=== PATIENT | male | born 1950 | race Caucasian/White ===

== ENCOUNTER 2016-06-06 10:59 | Observation (INO) ==
--- NOTE | 2016-06-06 11:30 | Emergency Department Note ---
Disposition Clinical Impression: Chest pain Qualifiers: Chest pain type: unspecified Qualified Code(s): R07.9 - Chest pain, unspecified Disposition: Admitted As Inpatient Condition: Good Referrals: Unassigned,Provider [Primary Care Provider] - Forms: ED Satisfaction Letter Time of Disposition: 12:53 Chest Pain HPI - General Chief Complaint: ED Chest Pain Stated Complaint: Chest pain Source: patient Mode of arrival: ambulatory Limitations: no limitations Vital Signs Reviewed: Yes Nursing Notes Reviewed: Yes - History of Present Illness HPI Narrative: Patient is a 66-year-old male who is complaining of 1-1/2 weeks of left-sided chest pain rating to his left arm. He states nothing makes it better or worse and comes and goes and describes it as an aching sensation. He did have a negative stress test over 10 years ago he has no documented history of coronary artery disease. His brother did have a CABG in his dad of a stroke. He takes 81 mg of aspirin daily. He denies any other associated symptoms denies vomiting, diaphoresis, or radiation to the right arm or back. Pt complaint: chest pain Duration: intermittent Onset: during rest Pain Radiation: LUE Improves with: nothing Worsens with: nothing Associated symptoms: Denies: nausea, vomiting, syncope Treatments prior to arrival chest pain: aspirin - Related Data Allergies Allergy/AdvReac Type Severity Reaction Status Date / Time No Known Allergies Allergy Verified 06/06/16 11:37 All systems ED: reviewed and negative except as stated. Constitutional: Denies: fever, chills Respiratory: Denies: cough, dyspnea, wheezes, hemoptysis Chest Pain PMH - Past Medical History Medical history: Reports: hyperlipidemia, hypertension, thyroid disease - Social History Smoking Status: Never smoker Smokeless Tobacco Status: No Brother Family Medical History Unknown: Yes Adopted: No Family Member Age: 62 Race: Family Member Living Status: Still Living Hx Family Cardiac Disorders: Yes (CABG) Physical Exam - General Limitations: no limitations General appearance: alert, in no apparent distress - Head Head exam: atraumatic, normocephalic, normal inspection - Eye Eye exam: Present: normal appearance, PERRL, EOMI - Expanded Eye Exam Pupils: Left: reactive - ENT ENT exam: normal exam, normal oropharynx, mucous membranes moist - Expanded ENT Exam External ear exam: Present: normal external inspection Mouth exam: Present: normal external inspection Teeth exam: Present: normal inspection Throat exam: Present: normal inspection - Neck Neck exam: Present: normal inspection, full ROM, trachea midline - Chest Chest inspection: Present: normal inspection, symmetric chest wall rise - Respiratory Respiratory exam: Present: normal lung sounds bilaterally - Cardiovascular Cardiovascular exam: Present: regular rate, normal rhythm, normal heart sounds - Abdominal Exam Abdominal exam: Present: soft, Non-Tender. Absent: tenderness, distention, guarding, rebound, rigidity - Extremities Exam Extremities exam: Present: normal inspection, full ROM. Absent: tenderness, pedal edema - Expanded Upper Extremity Exam Shoulder exam: Present: normal inspection, full ROM Arm exam: Present: normal inspection, full ROM Elbow exam: Present: normal inspection, full ROM Forearm/Wrist exam: Present: normal inspection, full ROM Hand exam: Present: normal inspection, full ROM Vascular exam: Normal: capillary refill, radial pulse - Expanded Lower Extremity Exam Hip/Pelvis exam: Present: normal inspection, full ROM Upper leg exam: Present: normal inspection, full ROM Knee exam: Present: normal inspection, full ROM Lower leg exam: Present: normal inspection, full ROM Ankle exam: Present: normal inspection, full ROM Foot/toe exam: Present: normal inspection, full ROM Neurovascular/Tendon exam: Absent: motor deficit, sensory deficit, tendon deficit - Back Exam Back exam: Present: normal inspection, full ROM. Absent: tenderness - Neurological Exam Neurological exam: Present: alert, oriented X3 - Expanded Neurological Exam Patient oriented to: Present: person, place, time Coma Scale Eye Opening: Spontaneous Coma Scale Motor Response: Obeys Commands Coma Scale Verbal Response: Oriented Coma Scale Total: 15 - Psychiatric Psychiatric exam: Present: normal affect, normal mood - Skin Skin exam: Present: warm, dry, intact, normal color Course Vital Signs Temperature 98.1 F 06/06/16 11:01 Pulse Rate 57 06/06/16 11:01 Respiratory Rate 18 06/06/16 11:01 Blood Pressure 133/84 06/06/16 11:01 O2 Sat by Pulse Oximetry 99 06/06/16 11:01 Temperature 98.1 F 06/06/16 11:01 Pulse Rate 57 06/06/16 11:01 Respiratory Rate 18 06/06/16 11:01 Blood Pressure 133/84 06/06/16 11:01 O2 Sat by Pulse Oximetry 99 06/06/16 11:01 Oxygen Delivery Oxygen Delivery Room Air Chest Pain - Differential Diagnosis Likely: stable angina, unstable angina pectoris, atypical chest pain, st elevation myocardial infraction, costalchondritis - Medical Records Medical records reviewed: Yes I reviewed the patient's medical records. - Lab Data Lab results reviewed: Yes I reviewed the patient's lab results. Result diagrams: 06/06/16 11:37 06/06/16 11:37 Lab Results 06/06/16 06/06/16 06/06/16 Range/Units 11:37 11:37 11:37 WBC 8.3 (4.3-11.1) K/mcL RBC 4.80 (4.19-5.50) M/mcL Hgb 14.0 (12.9-16.9) g/dL Hct 42.4 (37.5-50.1) % MCV 88.3 (83.0-100.0) fL MCH 29.2 (28.0-33.3) pg MCHC 33.0 (31.6-35.5) g/dL RDW 12.9 (11.5-14.5) % Plt Count 212 (140-400) K/mcL MPV 10.3 (9.4-12.4) fL Immature Gran % 0.4 (0-4) % Seg Neutrophils % 55.0 % Lymphocytes % 30.0 % Monocytes % 8.2 % Eosinophils % 5.7 % Basophils % 0.7 % Neutrophils # 4.6 (1.6-8.9) K/mcL Lymphocytes # 2.5 (0.6-4.6) K/mcL Monocytes # 0.7 (0.0-1.3) K/mcL Eosinophils # 0.5 (0.0-0.6) K/mcL Basophils # 0.1 (0.0-0.2) K/mcL PT 11.1 (9.4-12.1) Seconds INR 1.0 APTT 34.7 (26.0-36.0) Seconds Sodium 140 (136-145) mEq/L Potassium 4.3 (3.5-4.5) mEq/L Chloride 108 (98-109) mEq/L Carbon Dioxide 24 (19-29) mEq/L BUN 14 (8-26) mg/dL Creatinine 0.83 (0.72-1.25) mg/dL Est GFR ( Amer) > 60 (> 60) Est GFR (Non-Af Amer) > 60 (> 60) BUN/Creatinine Ratio 17 (6-26) Glucose 101 H (70-99) mg/dL Calculated Osmolality 291 (280-300) Calcium 9.2 (8.6-10.8) mg/dL Troponin I (0-0.03) ng/mL 06/06/16 Range/Units 11:37 WBC (4.3-11.1) K/mcL RBC (4.19-5.50) M/mcL Hgb (12.9-16.9) g/dL Hct (37.5-50.1) % MCV (83.0-100.0) fL MCH (28.0-33.3) pg MCHC (31.6-35.5) g/dL RDW (11.5-14.5) % Plt Count (140-400) K/mcL MPV (9.4-12.4) fL Immature Gran % (0-4) % Seg Neutrophils % % Lymphocytes % % Monocytes % % Eosinophils % % Basophils % % Neutrophils # (1.6-8.9) K/mcL Lymphocytes # (0.6-4.6) K/mcL Monocytes # (0.0-1.3) K/mcL Eosinophils # (0.0-0.6) K/mcL Basophils # (0.0-0.2) K/mcL PT (9.4-12.1) Seconds INR APTT (26.0-36.0) Seconds Sodium (136-145) mEq/L Potassium (3.5-4.5) mEq/L Chloride (98-109) mEq/L Carbon Dioxide (19-29) mEq/L BUN (8-26) mg/dL Creatinine (0.72-1.25) mg/dL Est GFR ( Amer) (> 60) Est GFR (Non-Af Amer) (> 60) BUN/Creatinine Ratio (6-26) Glucose (70-99) mg/dL Calculated Osmolality (280-300) Calcium (8.6-10.8) mg/dL Troponin I 0.00 (0-0.03) ng/mL - Radiology Data Radiology results reviewed: Yes I reviewed the patient's radiology results. - EKG Data EKG attestation: Yes I reviewed and interpreted this EKG. EKG shows normal: sinus rhythm Rate: bradycardia (58) Rhythm: NSR [place]/QRS: normal Heart block present: 1st Degree
[2016-06-06] MEDS ORDERED: Aspirin 81 MG TAB.CHEW PO STA (11:32)
[2016-06-06 11:43] LABS: Basophils # 0.1 K/mcL (0.0-0.2); Basophils % 0.7 %; Eosinophils # 0.5 K/mcL (0.0-0.6); Eosinophils % 5.7 %; Hematocrit 42.4 % (37.5-50.1); Immature Granulocytes % 0.4 % (0-4); Lymphocytes # 2.5 K/mcL (0.6-4.6); Mean Corpuscular Hemoglobin 29.2 pg (28.0-33.3); Mean Corpuscular Volume 88.3 fL (83.0-100.0); Mean Platelet Volume 10.3 fL (9.4-12.4); Monocytes # 0.7 K/mcL (0.0-1.3); Monocytes % 8.2 %; Neutrophils # 4.6 K/mcL (1.6-8.9); Platelet Count 212 K/mcL (140-400); Red Cell Distribution Width 12.9 % (11.5-14.5)
[2016-06-06 11:55] LABS: Prothrombin Time 11.1 Seconds (9.4-12.1)
[2016-06-06 11:57] LABS: Activated Partial Thrombo Time 34.7 Seconds (26.0-36.0); BUN/Creatinine Ratio 17 (6-26); Blood Urea Nitrogen 14 mg/dL (8-26); Calcium 9.2 mg/dL (8.6-10.8); Carbon Dioxide 24 mEq/L (19-29); Chloride 108 mEq/L (98-109); Glucose 101 mg/dL (70-99); Osmolality,Calculated 291 (280-300); Potassium 4.3 mEq/L (3.5-4.5); Sodium 140 mEq/L (136-145); eGFR For African Americans > 60 (> 60); eGFR For Non-African Americans > 60 (> 60)
[2016-06-06] MEDS ORDERED: Naloxone 0.4 MG/ML INJ IVP PRN (13:49)
[2016-06-06] MEDS: *HR* Enoxaparin 40 MG/0.4 ML SYRINGE SQ SCH (14:32)
--- NOTE | 2016-06-06 16:58 | Electrocardiograph Report ---
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
--- NOTE | 2016-06-06 17:17 | Internal Med History&Physical ---
Date of Encounter: 06/06/16 Time of Encounter: 17:15 Assessment and Plan (1) Chest pain Current visit: Yes Status: Acute Patient presents with left-sided chest pain radiating down his left arm 101-1/2 weeks. Initial troponin negative at 0.0. EKG was sinus bradycardia tachycardia heart rate 58. Chest x-ray showed no active pulmonary disease and normal heart size. Serial troponins for treatment. Continuous cardiac monitoring Plan for stress test and echocardiogram in the morning. Hold morning dose of metoprolol for stress test. Qualifiers: Chest pain type: precordial pain Qualified Code(s): R07.2 - Precordial pain (2) Hypertension Current visit: Yes Status: Acute Continue home dose of metoprolol. Patient's HR is low at 58-60. Hold AM dose for planned stress test. May want to consider decreasing dose of metoprolol and adding malena-inhibitor. Qualifiers: Hypertension type: essential hypertension Qualified Code(s): I10 - Essential (primary) hypertension (3) Hyperlipidemia Current visit: Yes Status: Acute Continue home dose of simvastatin. Qualifiers: Hyperlipidemia type: unspecified Qualified Code(s): E78.5 - Hyperlipidemia , unspecified (4) DVT prophylaxis Current visit: Yes Status: Acute Ambulate with assistance as tolerated anti-embolic stockings Lovenox 40mg SQ daily Internal Medicine - H&P: HPI Chief complaint: chest pain Admitted From: Emergency Dept Plans for Post Hospital Care: Home History of present illness: Mr. Andrade is a 66 year old male with history of hypertension, hyperlipidemia, and family history of coronary artery disease and cardiovascular disease, presented to the emergency department this morning complaining of chest pain for the last 1-1/2 weeks. He describes the pain as an ache radiating from his left chest down his left arm. He also reports occasional numbness and tingling in his left arm. Nothing has been able to relieve the pain, he has tried ibuprofen, and aspirin. Nothing seems to make it worse. He denies any shortness of breath at rest, palpitations, lightheadedness, dizziness. He does endorse some shortness of breath on exertion. Hydration in the emergency department revealed an EKG showed sinus bradycardia with heart rate of 58. Chest x-ray showed no active pulmonary disease normal heart size. Troponin was negative at 0.0. Exam patient is alert and oriented, in no distress. Heart has regular rate and rhythm. Lungs are clear to auscultation bilaterally. Past Med Surg Social Fam HX - Past Medical History Medical history: hyperlipidemia, hypertension, thyroid disease, other (brain hemorrhage 2001) Psychiatric history: no psych history - Social History Smoking Status: Former smoker (100 pack year history) Smokeless Tobacco Status: No Alcohol use: none Drug use: none Current living situation: Home, With Family - Family History Brother History Unknown: Yes Adopted: No Age: 62 Living Status: Still Living Hx Family Cardiac Disorders: Yes (CABG) Father Living Status: Cause of : CVA Internal Medicine - H&P: Meds Aspirin [Lo-Dose Aspirin EC] 81 mg PO DAILY 06/06/16 [History] Levothyroxine [Synthroid] 75 mcg PO DAILY 06/06/16 [History] Meloxicam 7.5 mg PO DAILY 06/06/16 [History] Metoprolol Tartrate [Lopressor] 50 mg PO BID 06/06/16 [History] Morphine Sulfate SR (12 HR) [MS Contin] 30 mg PO Q12HR 06/06/16 [History] Simvastatin [Zocor] 20 mg PO HS 06/06/16 [History] Allergies BEE VENOM Allergy (Uncoded 06/06/16 14:42) Swelling of Lip/Tongue/Throat All Systems PM: A 10-system review of systems was performed and is negative for pertinent findings except as documented above in the HPI. - Constitutional Constitutional: no chills, no fever(s), no night sweats - EENT Eyes: no change in vision, no discharge, no pain, no photophobia Ears: no ear discharge, no ear pain, no tinnitus Nose, mouth and throat: no dysphagia, no nasal discharge, no neck pain, no sore throat - Cardiovascular Cardiovascular ROS IM: chest pain, dyspnea on exertion, no diaphoresis, no dyspnea, no lightheadedness, no palpitations, no syncope - Respiratory Respiratory: dyspnea on exertion, no cough, no dyspnea, no wheezing, no excessive phlegm production - Gastrointestinal Gastrointestinal: no abdominal pain, no diarrhea, no hematemesis, no hematochezia, no melena, no nausea, no vomiting - Musculoskeletal Musculoskeletal ROS IM: no numbness, no tingling - Integumentary Integumentary IM: no rash, no unusual bruising - Neurological Neurological ROS: no confusion, no convulsions, no focal weakness, no numbness, no tingling, no tremor(s) - Hematologic/Lymphatic Hematologic/Lymphatic: no easy bruising - Constitutional Vitals: Temp Pulse Resp BP Pulse Ox 97.7 F 59 14 156/86 96 06/06/16 16:53 06/06/16 16:53 06/06/16 16:53 06/06/16 16:53 06/06/16 16:53 General appearance: Present: A&O X 3, no acute distress - Head Head exam: Present: atraumatic, normocephalic - Eye Eye exam: Present: PERRL, conjuntiva pink, sclera anicteric Pupils: Present: PERRL Additional comments: arcus sinilis - Neck Neck exam general surgery: Present: supple, trachea midline. Absent: lymphadenopathy - Respiratory Respiratory exam: Present: CTAB. Absent: accessory muscle use, rales, rhonchi, wheezes - Cardiovascular Cardiovascular exam: Present: RRR, +S1, +S2. Absent: diastolic murmur, gallop, rubs, systolic murmur - GI/Abdominal GI/Abdominal exam: Present: normal bowel sounds, soft, no peritoneal signs. Absent: distended, tenderness - Extremities Exam Extremities exam: Present: warm, radial pulses palpable and symetrical. Absent : calf tenderness, cyanotic, pedal edema - Neurological Exam Neurological exam: Present: CN II-XII intact, oriented X3, no focal deficits. Absent: facial droop, speech deficit - Skin Skin exam: Present: dry, intact Internal Med - H&P Results - Labs CBC & Chem 7: 06/06/16 11:37 06/06/16 11:37 - VTE Documentation of Mechanical Device: Graduated compression elastic hosiery
[2016-06-06] MEDS: *HR* Morphine Sulfate SR (12 HR) 30 MG TABLET.ER PO SCH (21:24)
[2016-06-07 01:40] LABS: Basophils # 0.1 K/mcL (0.0-0.2); Basophils % 0.7 %; Eosinophils # 0.5 K/mcL (0.0-0.6); Eosinophils % 6.1 %; Hematocrit 42.1 % (37.5-50.1); Hemoglobin 13.9 g/dL (12.9-16.9); Immature Granulocytes % 0.2 % (0-4); Lymphocytes # 3.3 K/mcL (0.6-4.6); Lymphocytes % 38.7 %; Mean Corpuscular Hemoglobin 29.2 pg (28.0-33.3); Mean Corpuscular Volume 88.4 fL (83.0-100.0); Mean Platelet Volume 11.2 fL (9.4-12.4); Monocytes # 0.7 K/mcL (0.0-1.3); Monocytes % 8.7 %; Neutrophils # 3.9 K/mcL (1.6-8.9); Platelet Count 188 K/mcL (140-400); Red Blood Count 4.76 M/mcL (4.19-5.50); Red Cell Distribution Width 12.8 % (11.5-14.5); Segmented Neutrophils % 45.6 %
[2016-06-07 01:56] LABS: BUN/Creatinine Ratio 15 (6-26); Blood Urea Nitrogen 14 mg/dL (8-26); Calcium 9.1 mg/dL (8.6-10.8); Carbon Dioxide 26 mEq/L (19-29); Chloride 107 mEq/L (98-109); Glucose 97 mg/dL (70-99); Osmolality,Calculated 294 (280-300); Potassium 4.4 mEq/L (3.5-4.5); Sodium 142 mEq/L (136-145); eGFR For African Americans > 60 (> 60); eGFR For Non-African Americans > 60 (> 60)
[2016-06-07] MEDS: *HR* Enoxaparin 40 MG/0.4 ML SYRINGE SQ SCH (03:08)
[2016-06-07] MEDS ORDERED: Aspirin Enteric Coated 81 MG Tablet PO SCH (09:00)
[2016-06-07] MEDS ORDERED: Regadenoson 0.4 MG/5 ML SYRINGE IVP ONE (09:11)
[2016-06-07] MEDS: *HR* Morphine Sulfate SR (12 HR) 30 MG TABLET.ER PO SCH (10:47)
[2016-06-07 11:30] VITALS: BP 162/90
--- NOTE | 2016-06-07 11:49 | Nuclear Medicine Stress Report ---
Regadenoson Nuclear Stress Name: Jovan Andrade Date of Study: 06/07/2016 Date: 1950 Ht: 65.0 in Medical Record#: [id number] Age: 66 Wt: 160.0 lb Gender: Male Order #: [id number] Location: [facility] IP Room: [facility] Supervising Provider: Steven Raymond CNP Reading Physician: Tonja Palma DO Ordering Physician: Christiana Maria CNP Primary Care Physician: Gregg Garza MD Stress Technologist: Ruth Barraza, TRIM SETTER, CCT, CPFT Client Advisor: Shay Biswas Indications: Arm pain Impression: Perfusion imaging was negative for ischemia or infarct. Pharmacologic ECG was negative for ischemia at the level of heart rate achieved. Patient had 5/10 left arm pain throughout study without change. Gated EF = >70%. History: Hypertension Hypercholesteremia Stress Test Summary: Stress Test Type: Pharmacologic Regadenoson 0.4mg/5ml given IV Baseline Information: Initial Heart Rate: 65 Blood Pressure: 110/72 Stress Information: Stress Time: 4 min sec Test Terminated Due to (primary): As per protocol Maximum Blood Pressure: 146/90 Maximum Heart Rate: 90 Percent Maximum Heart Rate Achieved: 58 Double Product: [id number] METS Reached: 1 Symptoms: Shortness of breath Nuclear Summary: SPECT myocardial perfusion imaging using Tc99m Sestamibi given intravenously was performed at rest and following cardiac stress testing. The resting images were obtained following initial dose of 11.5 mCi. Following stress an additional dose of 35.8 mCi was given at peak exercise or 30 seconds post regadenoson infusion. Medication Given: Time Medication Dose Units Route Findings: Stress Note * Resting ECG demonstrated normal sinus rhythm with nonspecific ST abnormalities. * Pharmacologic stress ECG is negative for ischemia at level of heart rate achieved. No appreciable change from baseline ECG. * No arrhythmias were noted during stress. * Patient had 5/10 left arm ache at beginning of study without change during study and without new symptoms. Hemodynamic responses * Normal hemodynamic responses to pharmacologic stress. Study Quality * Study quality was fair. Gated EF > 70% * Gated EF > 70%. Left Ventricle * The left ventricle is not dilated. TID * No evidence of transient ischemic dilatation. Lung Uptake * There is no evidence of increase lung uptake. NORMALS * Normal wall motion. * Normal segmental perfusion in stress. * Normal Segmental Perfusion in rest. Updated by Tonja Palma on 06/07/2016 11:40:27 AM electronically signed on 06/07/2016 11:45:37 AM with status of Final
--- NOTE | 2016-06-07 13:26 | ECHO - Doppler Report ---
Echocardiogram Name: Jovan Andrade Date of Study: 06/07/2016 Date: 1950 Ht: 65.0 in Medical Record#: [id number] Age: 66 Wt: 198.0 lb Gender: Male BSA: 1.97 Order #: [id number] Location: [facility] Room #: [facility] Reading Physician: Tonja Palma DO Physical Sciences Instructor: Suzy Hoffman RDCS Ordering Physician: Christiana Maria CNP Primary Physician: Gregg Garza MD Indications: Chest pain Impressions: LVEF 55%. Normal left ventricular size and systolic function. Normal diastolic function of the left ventricle. Normal right ventricular size and function. No significant valvular dysfunction. No pulmonary hypertension. Left Ventricular Wall Motion: Rest Echo Findings All wall segments showed normal motion. Findings: Study Quality * Technically adequate exam. ECG Findings * Normal sinus rhythm. Left Ventricle * LVEF 55%. * Normal LV chamber size, wall thickness and function. * Normal left ventricular diastolic function. Mitral Valve * Normal mitral valve structure. * No mitral stenosis. * Trace mitral regurgitation. Aortic Valve * No aortic regurgitation. * Trileaflet aortic valve. * Normal aortic valve structure. * No aortic stenosis. Tricuspid Valve * Tricuspid valve not well visualized. * Trace tricuspid regurgitation. * Estimated RA pressure is 3 mmHg. * Estimated RVSP is 25 mmHg. * No pulmonary hypertension. Pulmonic Valve * Pulmonic valve is not well visualized. * No pulmonic stenosis. * Trace pulmonic regurgitation. Pulmonary Artery * Pulmonary artery not well visualized. Right Ventricle * Normal right ventricular structure and function. Right Atrium * Normal right atrial size. Left Atrium * Moderately dilated left atrium. Interatrial Septum * No evidence of PFO by color Doppler. IVC * The IVC is not dilated. Pericardium * There is no pericardial effusion present. Aorta * Normally sized aortic root. History Hypertension Hypercholesteremia Family History of CAD Measurements: BP: 163/ 95 2D Normal Values RVIDd: 2.70 cm <2.7 cm IVSd: .90 cm 0.6 - 1.0 cm LVIDd: 4.90 cm 3.7 - 5.6 cm LVPWd: 1.00 cm 0.6 - 1.1 cm LVIDs: 2.80 cm 1.5 - 3.6 cm AO: 2.70 cm < 4.0 cm LA: 3.50 cm 2.0 - 4.0cm %FS: 42.90 cm >25 % LVOT Diam: 2.00 cm LA volume: 79 Mitral Valve Peak E:.74 m/sec Peak A:.41 m/sec E/A Ratio:1.8 Peak E' Lat Laith:11.1 cm/s Peak E' Med Laith:8.11 cm/s E/E' Lat Ratio:6.7 E/E' Med Ratio:9.1 Tricuspid Valve TV Regurg Peak Grad: 22.00mmHg TV Regurg Peak Laith: 2.36m/sec Updated by Tonja Palma on 06/07/2016 1:20:17 PM electronically signed on 06/07/2016 1:20:58 PM with status of Final Wall Motion Fritz: 1=Normal, 2=Hypokinesis, 3=Akinesis, 4=Dyskinesis, 5=Aneurysmal, 6=Hyperkinetic, X=Not Visualized (Blank)=Missing
--- NOTE | 2016-06-07 14:54 | Discharge Summary ---
Date of Encounter: 06/07/16 Time of Encounter: 14:52 - Discharge Diagnosis (1) Chest pain Priority: Primary Status: Acute Qualifiers: Chest pain type: precordial pain Qualified Code(s): R07.2 - Precordial pain (2) Hyperlipidemia Priority: Secondary Status: Acute Qualifiers: Hyperlipidemia type: unspecified Qualified Code(s): E78.5 - Hyperlipidemia , unspecified (3) Hypertension Priority: Secondary Status: Acute Qualifiers: Hypertension type: essential hypertension Qualified Code(s): I10 - Essential (primary) hypertension - Discharge Medications Home Medications: Aspirin [Lo-Dose Aspirin EC] 81 mg PO DAILY 06/06/16 [History] Levothyroxine [Synthroid] 75 mcg PO DAILY 06/06/16 [History] Meloxicam 7.5 mg PO DAILY 06/06/16 [History] Metoprolol Tartrate [Lopressor] 50 mg PO BID 06/06/16 [History] Morphine Sulfate SR (12 HR) [MS Contin] 30 mg PO Q12HR 06/06/16 [History] Simvastatin [Zocor] 20 mg PO HS 06/06/16 [History] Allergies/Adverse Reactions: Allergies BEE VENOM Allergy (Uncoded 06/06/16 14:42) Swelling of Lip/Tongue/Throat Procedures/tests Complete & Pending: Procedures Performed prior 72 hours Category Date Time Status NM stephane perf SPECT multi [NM] Routine Exams 06/06/16 13:52 Taken ECG 12 lead ECG [ECG] AM 0600 Y 06/07/16 06:00 Ordered EV echocardiogram Routine Y 06/07/16 08:00 Completed SP pharm nuclear stress Routine Y 06/07/16 09:00 Completed Date of admission: 06/06/16 13:46 Primary care physician: Provider Unassigned Discharging clinician: Yaz Christopher Anticipated date of discharge: 06/07/16 - Patient Status Disposition: Home, Self-Care Condition: Fair Functional capacity at discharge: independent ambulation Overall status at discharge: patient is back to baseline - Discharge Instructions Instructions: Chest Pain (DC), Low Sodium Diet (GEN) Follow Up With: Unassigned,Provider [Primary Care Provider] - - Diet and Activity Activity: resume usual activities as tolerated Diet: advance to your usual diet Interval History: Mr. Andrade is a 66 year old male with history of hypertension, hyperlipidemia, and family history of coronary artery disease and cardiovascular disease, presented to the emergency department this morning complaining of chest pain for the last 1-1/2 weeks EKG showed sinus bradycardia with heart rate of 58. Chest x-ray showed no active pulmonary disease normal heart size. Troponin was negative at 0.0. he was admitted for further evaluation of the chest pain repeat trop was negative, he underwent nuclear stress test which was negative for ischemia or infarction. denies any shortness of breath at rest, palpitations, lightheadedness, dizziness. he is being dc in stable condition. Hospital course: Mr. Andrade is a 66 year old male Time spent discussing smoking cessation with patient: more than 10 minutes - Time Spent with Patient Total time spent providing and/or coordinating discharge services: Greater than 30 minutes - Constitutional Vitals: Temp Pulse Resp BP Pulse Ox 97.8 F 64 16 162/90 94 L 06/07/16 11:30 06/07/16 11:30 06/07/16 11:30 06/07/16 11:30 06/07/16 11:30 General appearance: Present: A&O X 3, no acute distress Exam: - Head Head exam: Present: atraumatic, normocephalic - Eye Eye exam: Present: PERRL, conjuntiva pink, sclera anicteric Pupils: Present: PERRL Additional comments: arcus sinilis - Neck Neck exam general surgery: Present: supple, trachea midline. Absent: lymphadenopathy - Respiratory Respiratory exam: Present: CTAB. Absent: accessory muscle use, rales, rhonchi, wheezes - Cardiovascular Cardiovascular exam: Present: RRR, +S1, +S2. Absent: diastolic murmur, gallop, rubs, systolic murmur - GI/Abdominal GI/Abdominal exam: Present: normal bowel sounds, soft, no peritoneal signs. Absent: distended, tenderness - Extremities Exam Extremities exam: Present: warm, radial pulses palpable and symetrical. Absent : calf tenderness, cyanotic, pedal edema - Neurological Exam Neurological exam: Present: CN II-XII intact, oriented X3, no focal deficits. Absent: facial droop, speech deficit - Skin Skin exam: Present: dry, intact - VTE Documentation of Mechanical Device: Graduated compression elastic hosiery
--- NOTE | 2016-06-08 13:59 | Electrocardiograph Report ---
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
== END 2016-06-07 15:20 | disposition home or self-care (01) ==
LOC: EMEROO 10:59 → 3BNU 10:59
PROVIDERS: ADMIT Family Medicine; ATTEND Nurse Practitioner Family

== ENCOUNTER 2020-10-25 16:11 | Inpatient (IN) ==
[2020-10-25] MEDS ORDERED: DilTIAZem 50 MG/50 ML IV.SOLN IVC SCH (16:45)
[2020-10-25 17:17] LABS: Basophils % 0.5 %; Eosinophils # 0.4 K/mcL (0.0-0.6); Eosinophils % 4.4 %; Hematocrit 41.1 % (37.5-50.1); Hemoglobin 13.6 g/dL (12.9-16.9); Immature Granulocytes % 0.1 % (0-4); Lymphocytes # 2.9 K/mcL (0.6-4.6); Mean Corpuscular HGB Conc 33.1 g/dL (31.6-35.5); Mean Corpuscular Hemoglobin 28.8 pg (28.0-33.3); Mean Corpuscular Volume 86.9 fL (83.0-100.0); Mean Platelet Volume 12.2 fL (9.4-12.4); Monocytes # 0.7 K/mcL (0.0-1.3); Monocytes % 9.4 %; Neutrophils # 3.8 K/mcL (1.6-8.9); Platelet Count 209 K/mcL (140-400); Red Blood Count 4.73 M/mcL (4.19-5.50); Red Cell Distribution Width 13.2 % (11.5-14.5); Segmented Neutrophils % 48.6 %; White Blood Count 7.9 K/mcL (4.3-11.1)
[2020-10-25 17:19] LABS: BUN/Creatinine Ratio 14 (6-26); Blood Urea Nitrogen 14 mg/dL (8-23); Calcium 8.9 mg/dL (8.6-10.3); Carbon Dioxide 25 mEq/L (23-29); Chloride 106 mEq/L (98-107); Glucose 120 mg/dL (70-105); Magnesium 1.9 mg/dL (1.6-2.6); Osmolality,Calculated 290 (280-300); Potassium 3.9 mEq/L (3.5-5.1); Sodium 139 mEq/L (136-145); Troponin I < 0.03 ng/mL (< 0.04); eGFR For African Americans > 60 (> 60); eGFR For Non-African Americans > 60 (> 60)
[2020-10-25 17:33] LABS: Thyroid Stimulating Hormone 0.453 mcIU/mL (0.340-5.600)
[2020-10-25 17:54] LABS: INR 1.1; Prothrombin Time 12.7 Seconds (9.4-12.1)
[2020-10-25] MEDS ORDERED: Magnesium Oxide 400 MG TABLET PO ONE (21:01)
[2020-10-25] MEDS ORDERED: *HR* Heparin 5,000 UNIT/ML VIAL IVP ONE (21:41)
[2020-10-25] MEDS ORDERED: *HR* Heparin 5,000 UNIT/ML VIAL IVP PRN ×2 (21:41)
[2020-10-25] MEDS ORDERED: Ondansetron 4 MG/2 ML VIAL IVP PRN (21:42)
[2020-10-25] MEDS ORDERED: Naloxone 0.4 MG/ML INJ IVP PRN (21:42)
[2020-10-25] MEDS: Morphine Sulfate ER (12 HR) 30 MG TABLET.ER PO SCH (21:43)
[2020-10-25] MEDS ORDERED: Perflutren Lipid Microsphere 1.3 ML in 0.9 % Sodium Chloride 8.7 ML IVP PRN (21:49)
[2020-10-25] MEDS: Heparin 25,000UNIT/250ML 1/2NS 25,000 UNIT/250 ML IV.SOLN IVC SCH (22:11)
[2020-10-25 22:34] LABS: Hemoglobin 13.1 g/dL (12.9-16.9); Mean Corpuscular Hemoglobin 27.6 pg (28.0-33.3); Mean Corpuscular Volume 86.5 fL (83.0-100.0); Mean Platelet Volume 11.9 fL (9.4-12.4); Platelet Count 188 K/mcL (140-400); Red Blood Count 4.74 M/mcL (4.19-5.50); Red Cell Distribution Width 13.2 % (11.5-14.5); White Blood Count 9.5 K/mcL (4.3-11.1)
[2020-10-25 22:44] LABS: INR 1.1; Prothrombin Time 12.5 Seconds (9.4-12.1)
[2020-10-26 00:33] LABS: Hemoglobin 14.1 g/dL (12.9-16.9); Mean Corpuscular HGB Conc 32.8 g/dL (31.6-35.5); Mean Corpuscular Hemoglobin 28.3 pg (28.0-33.3); Mean Corpuscular Volume 86.2 fL (83.0-100.0); Mean Platelet Volume 12.4 fL (9.4-12.4); Platelet Count 143 K/mcL (140-400); Red Blood Count 4.99 M/mcL (4.19-5.50); Red Cell Distribution Width 13.3 % (11.5-14.5); White Blood Count 10.4 K/mcL (4.3-11.1)
[2020-10-26 00:40] LABS: Estimated Average Glucose 126 mg/dl
[2020-10-26 00:53] LABS: BUN/Creatinine Ratio 11 (6-26); Blood Urea Nitrogen 10 mg/dL (8-23); Calcium 9.2 mg/dL (8.6-10.3); Carbon Dioxide 22 mEq/L (23-29); Chloride 107 mEq/L (98-107); Chol/HDL Ratio 3.7 (0-4.9); Cholesterol 129 mg/dL (< 200); Glucose 115 mg/dL (70-105); HDL Cholesterol 35 mg/dL (40-59); LDL Cholesterol,Calculated 81 mg/dL (< 100); Osmolality,Calculated 296 (280-300); Potassium 3.9 mEq/L (3.5-5.1); Sodium 143 mEq/L (136-145); Triglycerides 66 mg/dL (< 150); eGFR For African Americans > 60 (> 60); eGFR For Non-African Americans > 60 (> 60)
[2020-10-26] MEDS ORDERED: Morphine Sulfate ER (12 HR) 30 MG TABLET.ER PO SCH (06:00)
[2020-10-26] MEDS: Acetaminophen 325 MG TABLET PO PRN ×2 (06:19→12:39)
[2020-10-26] MEDS: Morphine Sulfate ER (12 HR) 30 MG TABLET.ER PO SCH ×2 (08:53→20:09)
[2020-10-26] MEDS ORDERED: *HR* Metoprolol 5 MG/5 ML VIAL IVP ONE ×2 (12:47→23:51)
[2020-10-26] MEDS: Heparin 25,000UNIT/250ML 1/2NS 25,000 UNIT/250 ML IV.SOLN IVC SCH (20:33)
[2020-10-27 01:29] LABS: Hematocrit 42.2 % (37.5-50.1); Hemoglobin 13.5 g/dL (12.9-16.9); Mean Corpuscular Hemoglobin 28.1 pg (28.0-33.3); Mean Corpuscular Volume 87.7 fL (83.0-100.0); Platelet Count 202 K/mcL (140-400); Red Blood Count 4.81 M/mcL (4.19-5.50); Red Cell Distribution Width 13.5 % (11.5-14.5); White Blood Count 9.2 K/mcL (4.3-11.1)
[2020-10-27 01:50] LABS: BUN/Creatinine Ratio 13 (6-26); Blood Urea Nitrogen 13 mg/dL (8-23); Calcium 9.2 mg/dL (8.6-10.3); Carbon Dioxide 28 mEq/L (23-29); Chloride 104 mEq/L (98-107); Glucose 108 mg/dL (70-105); Osmolality,Calculated 293 (280-300); Potassium 4.5 mEq/L (3.5-5.1); Sodium 141 mEq/L (136-145); eGFR For African Americans > 60 (> 60); eGFR For Non-African Americans > 60 (> 60)
[2020-10-27] MEDS ORDERED: *HR* Metoprolol 5 MG/5 ML VIAL IVP ONE ×2 (03:29→18:17)
[2020-10-27] MEDS ORDERED: DilTIAZem CD (24hr) 120 MG CAP.ER.24H PO SCH (09:00)
[2020-10-27] MEDS: Morphine Sulfate ER (12 HR) 30 MG TABLET.ER PO SCH ×2 (09:29→21:21)
[2020-10-27] MEDS: Apixaban 5 MG TABLET PO SCH (21:21)
[2020-10-28 03:31] LABS: BUN/Creatinine Ratio 13 (6-26); Blood Urea Nitrogen 13 mg/dL (8-23); Calcium 9.3 mg/dL (8.6-10.3); Carbon Dioxide 26 mEq/L (23-29); Chloride 105 mEq/L (98-107); Glucose 101 mg/dL (70-105); Osmolality,Calculated 288 (280-300); Potassium 4.2 mEq/L (3.5-5.1); Sodium 139 mEq/L (136-145); eGFR For African Americans > 60 (> 60); eGFR For Non-African Americans > 60 (> 60)
[2020-10-28 03:45] LABS: Triiodothyronine (T3) Free 3.34 pg/mL (2.50-3.90)
[2020-10-28 06:56] VITALS: BP 139/84
[2020-10-28] MEDS: Heparin 25,000UNIT/250ML 1/2NS 25,000 UNIT/250 ML IV.SOLN IVC SCH (07:04)
[2020-10-28] MEDS: Morphine Sulfate ER (12 HR) 30 MG TABLET.ER PO SCH (08:58)
[2020-10-28] MEDS: Apixaban 5 MG TABLET PO SCH (08:58)
[2020-10-28] MEDS ORDERED: DilTIAZem CD (24hr) 240 MG CAP.ER.24H PO SCH (09:00)
== END 2020-10-28 10:25 | disposition home or self-care (01) | DRG 310 ==
LOC: 3BNU 16:11 → EMEROOARM 16:11 → 3BNU 19:31
PROVIDERS: ADMIT Internal Medicine; ATTEND Internal Medicine